=== PATIENT | male | born 1950 | race Caucasian/White ===

== ENCOUNTER 2017-12-02 21:56 | Outpatient (CLI) | payer BC ==
--- NOTE | 2017-12-02 23:08 | Ultrasound Preliminary Report ---
Exam: US TESTICLE W/DOPPLER IMPRESSION: 1. Heterogeneous enlarged appearance of the left epididymis with mild increased vascularity. This may be due to epididymitis. 2. No evidence of a suspicious testicular mass. 3. There is a medium-sized left-sided hydrocele. [facility] The call report notification system was initiated by Dr. Brenda Souza at 23:02 hrs on 12/02/17. The above findings were discussed with LEAH Golden, PA by Dr. Brenda Souza at 23:06 hrs on 12/02/17. SITE ID: [id number]
--- NOTE | 2017-12-02 23:20 | Ultrasound Report ---
EXAM: SCROTAL ULTRASOUND EXAM DATE: 12/02/2017 10:49 PM. CLINICAL HISTORY: Left-sided scrotal mass, history of prostate cancer. COMPARISON: None. TECHNIQUE: Real-time scanning was performed with static images obtained. Both color-flow and Doppler spectral analysis were utilized. FINDINGS: Right: Testis: 3.9 x 2.9 x 2.6 cm. Normal size and echotexture. No mass, calcification, or abnormal blood fl ow. Epididymis: 1.6 x 1.5 x 0.8 cm. Normal size and echotexture. No mass or abnormal blood flow. Hydrocele: Small. Varicocele: None. Left: Testis: 4.0 x 3.0 x 2.5 cm. Normal size and echotexture. No mass, calcification, or abnormal blood fl ow. Epididymis: 1.6 x 1.3 x 3.0 cm. Nonspecific heterogeneous echotexture. Mild increased vascularity. Hydrocele: Medium-sized. Varicocele: None. IMPRESSION: 1. Heterogeneous enlarged appearance of the left epididymis with mild increased vascularity. This may be due to epididymitis. 2. No evidence of a suspicious testicular mass. 3. There is a medium-sized left-sided hydrocele. [facility] The call report notification system was initiated by Dr. Brenda Souza at 23:02 hrs on 12/02/17. The above findings were discussed with LEAH Golden, PA by Dr. Brenda Souza at 23:06 hrs on 12/02/17. Referring Provider Line: [phone] SITE ID: [id number]
== END 2017-12-02 21:57 | disposition home or self-care (01) ==
LOC: DI 21:56
PROVIDERS: ATTEND Physician Assistant
DX: N43.3 Hydrocele, unspecified (principal)
CPT/HCPCS: 76870; 93975

== ENCOUNTER 2020-05-10 13:50 | Outpatient (CLI) | payer BC, OTHER ==
[2020-05-10 18:05] LABS: BASOPHILS % (AUTO) 0.7 %; EOSINOPHILS % (AUTO) 0.4 %; HGB - HEMOGLOBIN 13.8 g/dL (14.0-18.0); LYMPHOCYTES % (AUTO) 22.8 %; MEAN CORPUSCULAR HEMOGLOBIN 30.7 pg (27.0-31.0); MEAN CORPUSCULAR HGB CONC 33.1 g/dL (32.0-36.0); MEAN CORPUSCULAR VOLUME 92.7 fL (80.0-94.0); MEAN PLATELET VOLUME 9.4 fL (7.4-11.4); MONOCYTES # (AUTO) 0.4 10^3/uL (0.0-1.0); MONOCYTES % (AUTO) 9.5 %; NEUTROPHILS % (AUTO) 66.4 %; PLT - PLATELET COUNT 269 10^3/uL (130-450); RED CELL DISTRIBUTION WIDTH 13.3 % (12.0-15.0); WHITE BLOOD COUNT 4.5 x10^3/uL (4.8-10.8)
[2020-05-10 18:45] LABS: ALBUMIN 4.4 g/dL (3.2-5.5); ALBUMIN/GLOBULIN RATIO 1.6 (1.0-2.2); ALKALINE PHOSPHATASE 48 IU/L (42-121); ALT ALANINE AMINOTRANSFERASE 20 IU/L (10-60); AST ASPARTATE AMINOTRANSFERASE 20 IU/L (10-42); BUN - BLOOD UREA NITROGEN 18 mg/dL (6-20); CALCIUM 9.7 mg/dL (8.5-10.3); CARBON DIOXIDE - CO2 26 mmol/L (21-32); CHLORIDE 105 mmol/L (101-111); CHOL/HDL RATIO 3.4 (<5.0); CHOLESTEROL 229 mg/dL; CREATININE 0.9 mg/dL (0.6-1.2); GLUCOSE 85 mg/dL (70-100); HDL CHOLESTEROL 67 mg/dL; LDL CHOLESTEROL,CALCULATED 147 mg/dL; LDL/HDL RATIO 2.2 (<3.6); SODIUM 140 mmol/L (135-145); TOTAL PROTEIN 7.2 g/dL (6.7-8.2); VLDL CHOLESTEROL 15 mg/dL
== END 2020-05-10 23:59 | disposition home or self-care (01) ==
LOC: LAB.WCP 13:50
PROVIDERS: ATTEND Family Medicine
DX: R73.01 Impaired fasting glucose (principal); C61 Malignant neoplasm of prostate; N50.82 Scrotal pain; E78.00 Pure hypercholesterolemia, unspecified
CPT/HCPCS: 36415; 80053; 80061; 83036; 83721; 84153; 85025